=== PATIENT | male | born 1965 | race Caucasian/White ===

== ENCOUNTER 2023-05-26 16:58 | Emergency (ER) | payer OTHER, BC, SELFPAY ==
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
[2023-05-26 17:18] VITALS: BP 153/80; PULSE 75; RESP 16; TEMP 36.8; O2SAT 99
[2023-05-26] MEDS: TETANUS,DIPHTHERIA,AC PERTUSSIS ADULT (0.5 ML) BOOSTRIX IM (17:33)
[2023-05-26] MEDS: SILVER SULFADIAZINE 1% CR 50 GM JAR (*BKC) 1 APPLIC TOPICAL (17:34)
== END 2023-05-26 17:52 | disposition home or self-care (01) ==
PROVIDERS: Emergency Provider Nurse Practitioner Family
DX: T22.111A Burn of first degree of right forearm, initial encounter (principal); T20.16XA Burn of first degree of forehead and cheek, initial encounter; T20.15XA Burn of first degree of scalp [any part], initial encounter; X18.XXXA Contact with other hot metals, initial encounter; Z23 Encounter for immunization; I10 Essential (primary) hypertension; E03.9 Hypothyroidism, unspecified
CPT/HCPCS: 16000; 90471; 90715; 99213; A9270; G0463